=== PATIENT | male | born 1965 | race Caucasian/White ===

== ENCOUNTER 2023-12-08 08:01 | Day surgery (SDC) | payer OTHER ==
[2023-12-08] VITALS (8 sets, daily range): BP systolic 120–172; BP diastolic 64–85; PULSE 66–74; RESP 11–14; TEMP 97.8; O2SAT 90–95
[~2023-12-08] VITALS: Ht 180.3 cm; Wt 149.7 kg
[~2023-12-08 08:01] MED LIST: ALBU108A5 IN; ALLO100T PO; AMLO1TAB22 PO; ASPI-543 PO; ATEN50TA PO; BUME2TAB5 PO; CALC667C PO; ESZO2TAB24 PO; FENO160T PO; FURO40TA4 PO; GLIP10TA9 PO; HYDR50TA47 PO; INSU1.2I SC; SEMA14TA2 PO; SEVE800T8 PO; SILD50TA PO
[2023-12-08] MEDS ORDERED: LIDOCAINE 2%HCL (LOCAL ANESTH.) INJ 20ML MDV ONE (08:45)
[2023-12-08] MEDS ORDERED: IODIXANOL 320MG/ML 100ML BTL IV ONE (08:45)
[2023-12-08] MEDS: cloNIDine HCL 0.1 MG TAB PO ONE (08:51)
[2023-12-08] MEDS: SODIUM CHLORIDE 0.9% 1,000 ML IV SCH (08:52)
[2023-12-08] MEDS: cloNIDine HCL 0.1 MG TAB ONE (08:53)
[2023-12-08] MEDS ORDERED: ANGIOMAX 250 MG VIAL IV ONE (09:16)
[2023-12-08] MEDS ORDERED: HEPARIN SODIUM (PORCINE) 5000 UNITS/ML 1ML VIAL ONE (09:17)
[2023-12-08] MEDS ORDERED: VERAPAMIL 2.5MG/ML INJ 2ML VIAL IV ONE (09:17)
[2023-12-08] MEDS ORDERED: MIDAZOLAM HCL 2MG/2ML 2ml VIAL (1mg/ml) ONE (09:17)
[2023-12-08] MEDS ORDERED: fentaNYL CITRATE 100 MCG/2 ML VL ONE (09:17)
[2023-12-08] MEDS ORDERED: SODIUM CHL 0.9% 0 ML ONE (09:17)
[2023-12-08] MEDS ORDERED: hydrALAZINE HCL 20 MG/ML VL ONE (09:43)
== END 2023-12-08 12:10 | disposition home or self-care (01) ==
LOC: CATH 08:01
PROVIDERS: ATTEND Internal Medicine
DX: R07.9 Chest pain, unspecified (principal); I25.10 Atherosclerotic heart disease of native coronary artery without angina pectoris; I27.20 Pulmonary hypertension, unspecified; Z79.82 Long term (current) use of aspirin; Z79.899 Other long term (current) drug therapy; Z98.890 Other specified postprocedural states
CPT/HCPCS: 93458; C1887; C1894; J0360; J1644; J2250; J3010; J7030; Q9967; 99152